=== PATIENT | female | born 1990 | race Caucasian/White ===

== ENCOUNTER 2020-10-21 06:08 | Day surgery (SDC) | payer MEDICAID, SELFPAY ==
[~2020-10-21] VITALS: Ht 147.3 cm; Wt 59.0 kg
[2020-10-21 07:11] LABS: HCG,QUAL RESULT NEGATIVE (NEGATIVE)
[2020-10-21] MEDS ORDERED: NS IRRIG SOLN 1000 ML IR ONE (07:30)
[2020-10-21] MEDS ORDERED: DEXAMETHASONE SOD PHOSPHATE 4 MG/ML VIAL IVP ONE (07:30)
[2020-10-21] MEDS ORDERED: EPINEPHrine 1 MG/ML AMP IV ONE (07:30)
[2020-10-21] MEDS ORDERED: MIDAZOLAM HCL 5 MG/5 ML VIAL IVP ONE (07:30)
[2020-10-21] MEDS ORDERED: WATER FOR IRRIGATION,STERILE 1,000 ML IRRIG.SOLN IR ONE (07:30)
[2020-10-21] MEDS ORDERED: LR 500 ML IV.SOLN IV ONE (07:30)
[2020-10-21] MEDS ORDERED: MUPIROCIN 2% TOPICAL OINTMENT 22 GM TP ONE (07:30)
[2020-10-21] MEDS ORDERED: LIDOCAINE/EPI 1% 1:100000 20 ML VIAL INJ ONE (07:30)
[2020-10-21] MEDS ORDERED: OXYMETAZOLINE HCL 0.05% NASAL SPRAY NS ONE (07:30)
[2020-10-21] MEDS ORDERED: ROCURONIUM BROMIDE 10 MG/ML (ZEMURON) IV ONE (07:30)
[2020-10-21] MEDS ORDERED: fentaNYL CITRATE/PF 100 MCG/2 ML AMP IVP ONE (07:30)
[2020-10-21] MEDS ORDERED: SEVOFLURANE 15 MIN GAS INH ONE (07:30)
[2020-10-21] MEDS ORDERED: fentaNYL CITRATE/PF 100 MCG/2 ML AMP IVP PRN ×2 (08:30)
[2020-10-21] MEDS ORDERED: ONDANSETRON HCL 4 MG/2 ML VIAL IVP PRN (08:30)
[2020-10-21] MEDS ORDERED: METOCLOPRAMIDE HCL 10 MG/2 ML VIAL IVP ONE (11:00)
[2020-10-21 16:53] VITALS: BP_SYST 103
== END 2020-10-21 13:30 | disposition home or self-care (01) ==
LOC: SMU 06:08 → SDS 06:08
PROVIDERS: ATTEND Otolaryngology
DX: J32.9 Chronic sinusitis, unspecified (principal); D38.5 Neoplasm of uncertain behavior of other respiratory organs; J34.2 Deviated nasal septum; J34.89 Other specified disorders of nose and nasal sinuses; R09.81 Nasal congestion; J30.1 Allergic rhinitis due to pollen; Z20.822 Contact with and (suspected) exposure to COVID-19; Z79.899 Other long term (current) drug therapy
CPT/HCPCS: 30140; 30520; 31255; 31256; 31298; 84703; 88305; 88311; C1726; J0171; J1100; J2250; J3010; U0003; J7120